=== PATIENT | male | born 1985 | race Caucasian/White ===

== ENCOUNTER 2019-02-27 22:44 | Emergency (ER) | payer SELFPAY ==
[~2019-02-27] VITALS: Ht 182.9 cm; Wt 140.0 kg
[2019-02-27 22:48] VITALS: Ht 182.9 cm; Wt 140.0 kg
[2019-02-27] MEDS ORDERED: LISINOPRIL20 MG PO (22:49)
[2019-02-28 00:12] VITALS: BP 175/107
== END 2019-02-28 00:12 | disposition home or self-care (01) ==
LOC: D.ER 22:44
DX: T54.2X1A Toxic effect of corrosive acids and acid-like substances, accidental (unintentional), initial encounter (principal); T26.92XA Corrosion of left eye and adnexa, part unspecified, initial encounter; T26.91XA Corrosion of right eye and adnexa, part unspecified, initial encounter; Y93.9 Activity, unspecified; Y92.9 Unspecified place or not applicable; I10 Essential (primary) hypertension; Z72.0 Tobacco use